=== PATIENT | male | born 1970 | race Caucasian/White ===

== ENCOUNTER 2019-08-10 13:28 | Inpatient (IN) | payer MEDICAID ==
[~2019-08-10] VITALS: Ht 190.5 cm; Wt 104.7 kg
[~2019-08-10 13:28] MED LIST: ENAL5TAB PO; METO25TA91 PO; PRAV40TA2 PO; WARF4TAB PO
[2019-08-10 16:57] VITALS: BP 118/76
[2019-08-10] MEDS ORDERED: LOSA25TA25 PO (17:22)
[2019-08-10] MEDS ORDERED: CARV6.252 PO (17:22)
[2019-08-10] MEDS ORDERED: ATOR20TA37 PO (17:22)
[2019-08-10] MEDS ORDERED: hydrALAzine 20 MG/ML, 1ML IVPush PRN (18:30)
[2019-08-10] MEDS ORDERED: TRAZODONE 50MG TABLET PO PRN (18:30)
[2019-08-10] MEDS ORDERED: GABAPENTIN 300 MG CAPSULE PO PRN (18:30)
[2019-08-10] MEDS ORDERED: ONDANSETRON ODT 4 MG PO PRN (18:30)
[2019-08-10] MEDS ORDERED: BUTALB/APAP/CAFFEINE 50MG/325MG/40MG PO PRN ×2 (18:30)
[2019-08-10] MEDS ORDERED: LABETALOL 5MG/ML, 20ML IVPush PRN (18:30)
[2019-08-10] MEDS ORDERED: ONDANSETRON 2MG/ML, 2ML IVPush PRN (18:30)
[2019-08-10] MEDS ORDERED: BACLOFEN 10 MG TABLET PO PRN (18:30)
[2019-08-10] MEDS ORDERED: ACETAMINOPHEN 325 MG TABLET PO PRN (18:30)
[2019-08-10 18:51] LABS: INTERNATIONAL NORMALIZED RATIO 1.45 (0.93-1.1); PROTHROMBIN TIME 15.4 Seconds (9.6-11.5)
[2019-08-10] MEDS ORDERED: WARFARIN 2 MG TABLET PO-COUM SCH (19:03)
[2019-08-10 19:34] VITALS: BP 102/63
[2019-08-10] MEDS ORDERED: ATORVASTATIN 20 MG TABLET PO SCH (21:00)
[2019-08-11] VITALS (9 sets, daily range): BP systolic 97–112; BP diastolic 66–73
[2019-08-11 04:57] LABS: BASOPHILS # (AUTO) 0.03 x10^3/uL (0-0.1); BASOPHILS % (AUTO) 1 % (0-1); EOSINOPHILS # (AUTO) 0.13 x10^3/uL (0-0.4); EOSINOPHILS % (AUTO) 3 % (1-7); LYMPHOCYTES # (AUTO) 1.71 x10^3/uL (1-3.4); LYMPHOCYTES % (AUTO) 40 % (22-44); MD NO; MEAN CORPUSCULAR HEMOGLOBIN 30.3 pg (27.5-34.5); MEAN CORPUSCULAR HGB CONC 32.9 g/dL (33.2-36.2); MEAN CORPUSCULAR VOLUME 91.9 fL (81-97); MEAN PLATELET VOLUME 9.7 fL (7.4-10.4); MONOCYTES # (AUTO) 0.26 x10^3/uL (0.2-0.8); MONOCYTES % (AUTO) 6 % (2-9); NEUTROPHILS # (AUTO) 2.11 x10^3/uL (1.8-6.8); NEUTROPHILS % (AUTO) 50 % (42-75); PLATELET COUNT 109 x10^3/uL (130-400); RED BLOOD COUNT 4.45 x10^6/uL (4.38-5.82); RED CELL DISTRIBUTION WIDTH 14.3 % (9.4-14.8)
[2019-08-11 04:58] LABS: INTERNATIONAL NORMALIZED RATIO 1.49 (0.93-1.1); PROTHROMBIN TIME 15.9 Seconds (9.6-11.5)
[2019-08-11 05:06] LABS: ANION GAP 2 mmol/L (5-15); CALCIUM 8.7 mg/dL (8.5-10.1); CHLORIDE 114 mmol/L (98-107)
[2019-08-11 05:10] LABS: ALANINE AMINOTRANSFERASE 30 U/L (12-78); ALKALINE PHOSPHATASE 100 U/L (45-117); BILIRUBIN,TOTAL 0.5 mg/dL (0.2-1.0); CREATININE 0.82 mg/dL (0.7-1.3); TOTAL PROTEIN 6.1 g/dL (6.4-8.2)
[2019-08-11] MEDS ORDERED: LOSARTAN 25MG TABLET PO SCH (09:00)
[2019-08-11] MEDS ORDERED: CARVEDILOL 6.25 MG TABLET PO SCH (09:00)
[2019-08-11] MEDS ORDERED: CARV6.252 PO (15:08)
[2019-08-12] MEDS ORDERED: CARVEDILOL 6.25 MG TABLET PO SCH (09:00)
[2019-08-12] MEDS ORDERED: LOSARTAN 25MG TABLET PO SCH (09:00)
== END 2019-08-11 16:45 | disposition home or self-care (01) | DRG 204 ==
LOC: 5SO 16:51
PROVIDERS: ADMIT Internal Medicine Cardiovascular Disease; ATTEND Internal Medicine Cardiovascular Disease
PROC: 4B02XTZ Measurement of Cardiac Defibrillator, External Approach (ICD-10-PCS; principal; 2019-08-10)
DX: R55 Syncope and collapse (principal); D68.69 Other thrombophilia; I42.8 Other cardiomyopathies; I11.0 Hypertensive heart disease with heart failure; I50.22 Chronic systolic (congestive) heart failure; E78.5 Hyperlipidemia, unspecified; I48.91 Unspecified atrial fibrillation; Z79.01 Long term (current) use of anticoagulants; Z86.711 Personal history of pulmonary embolism; Z86.718 Personal history of other venous thrombosis and embolism; Z95.810 Presence of automatic (implantable) cardiac defibrillator
CPT/HCPCS: 36415; 80053; 85025; 85610; 93306; 93356; G0378